=== PATIENT | male | born 1945 | race Caucasian/White ===

== ENCOUNTER 2022-06-21 10:53 | Emergency (ER) | payer MEDICARE, OTHER ==
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
[2022-06-21 12:00] LABS: BASOPHILS % (AUTO) 0.5 %; EOSINOPHILS % (AUTO) 0.8 %; HCT - HEMATOCRIT 38.5 % (42.0-52.0); HGB - HEMOGLOBIN 12.3 g/dL (14.0-18.0); LYMPHOCYTES # (AUTO) 1.2 10^3/uL (1.5-3.5); LYMPHOCYTES % (AUTO) 30.5 %; MEAN CORPUSCULAR HGB CONC 31.9 g/dL (32.0-36.0); MEAN CORPUSCULAR VOLUME 93.9 fL (80.0-94.0); MEAN PLATELET VOLUME 9.2 fL (7.4-11.4); MONOCYTES # (AUTO) 0.3 10^3/uL (0.0-1.0); MONOCYTES % (AUTO) 8.6 %; NEUTROPHILS # (AUTO) 2.3 10^3/uL (1.5-6.6); NEUTROPHILS % (AUTO) 59.6 %; PLT - PLATELET COUNT 213 10^3/uL (130-450); RED CELL DISTRIBUTION WIDTH 13.9 % (12.0-15.0); WHITE BLOOD COUNT 3.8 x10^3/uL (4.8-10.8)
[2022-06-21 12:26] LABS: ALBUMIN 3.9 g/dL (3.2-5.5); BILIRUBIN,TOTAL 0.8 mg/dL (0.2-1.0); CALCIUM 8.8 mg/dL (8.5-10.3); CREATININE 0.9 mg/dL (0.6-1.2); POTASSIUM 3.7 mmol/L (3.5-5.0); TOTAL PROTEIN 5.9 g/dL (6.7-8.2)
--- NOTE | 2022-06-21 12:46 | CT Report ---
PROCEDURE: CERVICAL SPINE WO INDICATIONS: hx of C5 fx; left ring finger weakness TECHNIQUE: Noncontrast 3 mm thick sections acquired from the skull base to the T4 level. Sagittal and coronal r eformats were then constructed. For radiation dose reduction, the following was used: automated exp osure control, adjustment of mA and/or kV according to patient size. COMPARISON: None. FINDINGS: Image quality: Excellent. Bones: No fractures or dislocations. Visualized superior ribs are intact. C4-5 interbody fusion wi thout instrumentation. Degenerative disc disease and arthropathy at C3-4 results in mild central and severe left foraminal stenosis Soft tissues: Prevertebral soft tissues are normal in thickness. No paravertebral hematomas. No ap ical pneumothoraces. IMPRESSION: 1. No evidence of fracture or subluxation. 2. Degenerative disc disease and arthropathy results in severe left foraminal stenosis at C3-4. 3. C4-5 interbody fusion without instrumentation Reviewed by: Ton Clemente MD on 06/21/2022 11:44 AM ESTHRE Approved by: Ton Clemente MD on 06/21/2022 11:44 AM ESTHER Station ID: [id number]
--- NOTE | 2022-06-21 12:47 | CT Report ---
PROCEDURE: CT brain without contrast INDICATIONS: left ring finger weakness TECHNIQUE: Noncontrast 4.5 mm thick angled axial sections acquired from the foramen magnum to the vertex. For r adiation dose reduction, the following was used: automated exposure control, adjustment of mA and/or kV according to patient size. COMPARISON: None. FINDINGS: Image quality: Excellent. CSF spaces: Basal cisterns are patent. No extra-axial fluid collections. Ventricles are normal in size and shape. Brain: No midline shift. No intracranial masses or hemorrhage. Higgins-white matter interface is norm al. Moderate atrophy and multifocal white matter chronic ischemic change noted. Atherosclerotic vasc ular calcification noted in the cavernous segments of both internal carotid arteries as well as the i ntradural vertebral arteries. Skull and face: Calvarium and visualized facial bones are intact, without suspicious lesions. Sinuses: Visualized sinuses and mastoids are clear. IMPRESSION: Atrophy and chronic ischemic change without intracranial hemorrhage or mass effect Reviewed by: Ton Clemente MD on 06/21/2022 11:46 AM ESTHER Approved by: Ton Clemente MD on 06/21/2022 11:46 AM ESTHER Station ID: [id number]
[2022-06-21 13:00] VITALS: BP 114/66
== END 2022-06-21 13:10 | disposition home or self-care (01) ==
LOC: ED 10:53
DX: M48.02 Spinal stenosis, cervical region (principal); M50.31 Other cervical disc degeneration, high cervical region; R29.898 Other symptoms and signs involving the musculoskeletal system; R20.0 Anesthesia of skin; M25.512 Pain in left shoulder; I48.91 Unspecified atrial fibrillation; Z79.01 Long term (current) use of anticoagulants
CPT/HCPCS: 36415; 80053; 83690; 84484; 85025; 93005; 99284